=== PATIENT | male | born 1970 | race Two or more races ===

== ENCOUNTER 2021-08-24 21:04 | Inpatient (IN) | payer BC ==
[~2021-08-24] VITALS: Ht 177.8 cm; Wt 95.5 kg
[2021-08-24] MEDS ORDERED: PANTOPRAZOLE 40 MG/10 ML VIAL INJ IV ONE (21:15)
[2021-08-24 22:04] LABS: Basophils # (auto) 0 10 ^3/uL (0-0.2); Basophils % (auto) 0.1 % (0.0-2.0); Eosinophils # (auto) 0 10 ^3/uL (0-0.8); Eosinophils % (auto) 0.1 % (0.0-7.0); Lymphocytes # (auto) 1.2 10 ^3/uL (0.4-5.4); Monocytes # (auto) 0.3 10 ^3/uL (0-1.3); Neutrophils # (auto) 10.9 10 ^3/uL (1.6-8.6)
[2021-08-24 22:06] LABS: Hematocrit 20.6 % (41.0-53.0); Hemoglobin 7.1 g/dL (13.5-17.5); Lymphocytes % (auto) 9.6 % (10.0-50.0); Mean Corpuscular Hemoglobin 31.1 pg (28.0-32.0); Mean Corpuscular Hgb Conc. 34.5 g/dL (32.0-36.0); Mean Corpuscular Volume 90.2 fL (80.0-100.0); Monocytes % (auto) 2.4 % (0.0-12.0); Neutrophils % (auto) 87.8 % (37.0-80.0); Red Blood Cells 2.29 10^6/uL (4.5-5.90); Red Cell Distribution Width 12.4 % (11.8-14.3); White Blood Cell 12.4 10^3/uL (4.4-10.8)
[2021-08-24 22:22] LABS: Albumin 1.9 g/dL (3.4-5.0); BUN/Creatinine Ratio 47.6; Potassium 4.3 mmol/L (3.5-5.1)
[2021-08-24 22:27] LABS: Bilirubin, Total 0.2 mg/dL (0.2-1.0); Total Protein 4.3 g/dL (6.4-8.2)
[2021-08-24] MEDS ORDERED: ONDANSETRON HCL 4 MG/2 ML VIAL IV ONE (22:45)
[2021-08-24] MEDS ORDERED: LORazepam 2MG/ML-1ML VIAL IV ONE (23:30)
[2021-08-25] VITALS (12 sets, daily range): BP systolic 96–145; BP diastolic 49–105
[2021-08-25 00:10] LABS: Urine Bacteria NONE SEEN /hpf (None Seen); Urine Blood Negative /uL (Negative); Urine Specific Gravity 1.019 (1.001-1.035); Urine WBC 1 /hpf (0 - 3)
[2021-08-25] MEDS ORDERED: ACETAMINOPHEN 325 MG TAB PO ONE ×2 (00:30→01:15)
[2021-08-25] MEDS ORDERED: SODIUM CHLORIDE 0.9% 500 ML IV ONE ×2 (01:15)
[2021-08-25] MEDS ORDERED: methylPREDNISolone SOD SUCC 125 MG/2 ML VL IV ONE (04:45)
[2021-08-25] MEDS ORDERED: diphenhdrAMINE HCL 50 MG/1 ML VL IV ONE (04:45)
[2021-08-25] MEDS ORDERED: MORPHINE SULFATE INJECTION 2 MG/ML SYRG IV PRN (05:15)
[2021-08-25] MEDS ORDERED: ONDANSETRON HCL 4 MG/2 ML VIAL IV PRN (05:15)
[2021-08-25] MEDS ORDERED: NITROGLYCERIN 0.4 MG SL TAB SL PRN (05:15)
[2021-08-25] MEDS ORDERED: LORazepam 2MG/ML-1ML VIAL IV ONE (05:30)
[2021-08-25] MEDS: SODIUM CHLORIDE 0.9% 1,000 ML IV SCH ×2 (06:00→18:07)
[2021-08-25] MEDS: PANTOPRAZOLE 40mg/50ML NS AE 50 ML IV SCH ×3 (10:00→15:09)
[2021-08-25 11:53] LABS: Hemoglobin 8.8 g/dL (13.5-17.5)
[2021-08-25 12:11] LABS: INR 1.05 (0.9-1.15); Partial Thromboplastin Time 25.9 sec (23.6-33.0)
[2021-08-25] MEDS ORDERED: FAMOTIDINE (10MG/ML) 2ML VL IV ONE (14:18)
[2021-08-25] MEDS ORDERED: ONDANSETRON HCL 4 MG/2 ML VIAL ONE (14:20)
[2021-08-25] MEDS ORDERED: LIDOCAINE 2% (LOCAL ANESTH.) PF 5ml SDV ONE (14:20)
[2021-08-25] MEDS ORDERED: PROPOFOL 10 MG/ML 20 ML IV ONE (14:20)
[2021-08-25] MEDS ORDERED: GLYCOPYRROLATE 0.2 MG/ML 1ML VIAL ONE (14:20)
[2021-08-25] MEDS ORDERED: MIDAZOLAM HCL 2MG/2ML 2ml VIAL (1mg/ml) ONE (14:20)
[2021-08-25] MEDS: SUCRALFATE 1 GM/10 ML ORAL SUSP GT SCH (18:07)
[2021-08-25] MEDS ORDERED: diphenhdrAMINE HCL 12.5 MG/5 ML UD PO ONE (21:00)
[2021-08-25] MEDS: PANTOPRAZOLE 40 MG/10 ML VIAL INJ IV SCH (21:38)
[2021-08-25 22:51] LABS: Amphetamine Screen, Urine NEGATIVE (NEGATIVE); Barbiturate Scree,Urine NEGATIVE (NEGATIVE); Benzodiazephine Screen, Urine POSITIVE (NEGATIVE); Cannabinoid Screen, Urine NEGATIVE (NEGATIVE); Cocaine Screen, Urine NEGATIVE (NEGATIVE); Opiate Scree,Urine NEGATIVE (NEGATIVE)
[2021-08-25 22:59] LABS: Phencyclidine Screen, Urine NEGATIVE (NEGATIVE)
[2021-08-26 05:00] VITALS: BP 93/50
[2021-08-26] MEDS: SUCRALFATE 1 GM/10 ML ORAL SUSP GT SCH ×2 (06:33→17:55)
[2021-08-26 06:47] LABS: Basophils # (auto) 0 10 ^3/uL (0-0.2); Basophils % (auto) 0.2 % (0.0-2.0); Eosinophils # (auto) 0 10 ^3/uL (0-0.8); Hematocrit 20.8 % (41.0-53.0); Nucleated Red Blood Cells % 0.1 %
[2021-08-26 06:49] LABS: Eosinophils % (auto) 0.1 % (0.0-7.0); Hemoglobin 7.2 g/dL (13.5-17.5); Lymphocytes # (auto) 2.4 10 ^3/uL (0.4-5.4); Lymphocytes % (auto) 16.8 % (10.0-50.0); Mean Corpuscular Hemoglobin 31.1 pg (28.0-32.0); Mean Corpuscular Hgb Conc. 34.5 g/dL (32.0-36.0); Mean Corpuscular Volume 90.1 fL (80.0-100.0); Monocytes # (auto) 0.8 10 ^3/uL (0-1.3); Monocytes % (auto) 5.9 % (0.0-12.0); Neutrophils # (auto) 10.9 10 ^3/uL (1.6-8.6); White Blood Cell 14.2 10^3/uL (4.4-10.8)
[2021-08-26 06:58] LABS: Magnesium 2.2 mg/dL (1.6-2.6); Potassium 4.4 mmol/L (3.5-5.1)
[2021-08-26 07:06] LABS: Albumin 2.1 g/dL (3.4-5.0); BUN/Creatinine Ratio 28.9; Bilirubin, Total 0.4 mg/dL (0.2-1.0); Calcium 7.9 mg/dL (8.5-10.1); Total Protein 4.6 g/dL (6.4-8.2)
[2021-08-26] MEDS: SODIUM CHLORIDE 0.9% 1,000 ML IV SCH ×2 (07:55→20:05)
[2021-08-26 08:31] VITALS: BP 92/49
[2021-08-26] MEDS: PANTOPRAZOLE 40 MG/10 ML VIAL INJ IV SCH (11:08)
[2021-08-26 13:10] VITALS: BP 107/46
[2021-08-26] MEDS: guaiFENesin-DM 100/10mg/5ml SYR PO PRN (15:04)
[2021-08-26 17:28] VITALS: BP 100/61
[2021-08-26 20:02] VITALS: BP 118/63
[2021-08-26] MEDS ORDERED: SODIUM CHLORIDE 0.9% 1,000 ML IV SCH (21:00)
[2021-08-26] MEDS: ACETAMINOPHEN 325 MG TAB PO PRN (21:22)
[2021-08-26] MEDS: PANTOPRAZOLE 80 MG in SODIUM CHL 0.9% 80 ML IV SCH (21:23)
[2021-08-26 22:00] VITALS: BP 126/54
[2021-08-26] MEDS ORDERED: PANTOPRAZOLE 40 MG/10 ML VIAL INJ IV SCH (22:00)
[2021-08-27] MEDS: ACETAMINOPHEN 325 MG TAB PO PRN ×2 (04:48→10:40)
[2021-08-27 05:00] VITALS: BP 105/58
[2021-08-27 06:05] LABS: Hematocrit 22.4 % (41.0-53.0); Hemoglobin 7.3 g/dL (13.5-17.5); Mean Corpuscular Hemoglobin 30.2 pg (28.0-32.0); Mean Corpuscular Hgb Conc. 32.7 g/dL (32.0-36.0); Mean Corpuscular Volume 92.3 fL (80.0-100.0); Red Blood Cells 2.43 10^6/uL (4.5-5.90)
[2021-08-27 06:09] LABS: Basophils % (manual) 0 (0.0-2.0); Blast Cells 0; Promyelocytes % 0; Reactive Lymphocytes 0
[2021-08-27] MEDS: SUCRALFATE 1 GM/10 ML ORAL SUSP GT SCH (06:29)
[2021-08-27] MEDS: guaiFENesin-DM 100/10mg/5ml SYR PO PRN (06:30)
[2021-08-27 07:04] LABS: Band Neutrophils % (manual) 6; Eosinophils % (manual) 1 (0-7); Metamyelocytes % 1; Myelocytes % 5
[2021-08-27 07:05] LABS: Lymphocytes % (manual) 25 (10.0-50.0); Monocytes % (manual) 6 (0-12)
[2021-08-27 08:20] VITALS: BP 93/48
[2021-08-27] MEDS: PANTOPRAZOLE 80 MG in SODIUM CHL 0.9% 80 ML IV SCH (09:45)
[2021-08-27] MEDS ORDERED: SUCR1TAB22 PO (11:25)
[2021-08-27] MEDS ORDERED: PANT40TA2 PO (11:25)
[2021-08-27] MEDS ORDERED: LEVO500T31 PO (11:25)
[2021-08-27] MEDS ORDERED: FER325T PO (11:29)
[2021-08-27 12:05] VITALS: BP 98/67
== END 2021-08-27 12:30 | disposition home or self-care (01) | DRG 377 ==
LOC: EDBD 21:04 → ER 21:10 → TELE 08-25 05:04 → TELE-CENTR 08-25 06:42
PROVIDERS: ADMIT Nurse Practitioner; ATTEND Internal Medicine
PROC: 0DB68ZX Excision of Stomach, Via Natural or Artificial Opening Endoscopic, Diagnostic (ICD-10-PCS; 2021-08-25)
PROC: 30233N1 Transfusion of Nonautologous Red Blood Cells into Peripheral Vein, Percutaneous Approach (ICD-10-PCS; 2021-08-25)
PROC: 0DB98ZX Excision of Duodenum, Via Natural or Artificial Opening Endoscopic, Diagnostic (ICD-10-PCS; principal; 2021-08-25 14:23)
DX: K29.71 Gastritis, unspecified, with bleeding (principal); E43 Unspecified severe protein-calorie malnutrition; R65.10 Systemic inflammatory response syndrome (SIRS) of non-infectious origin without acute organ dysfunction; K25.4 Chronic or unspecified gastric ulcer with hemorrhage; I95.9 Hypotension, unspecified; J20.9 Acute bronchitis, unspecified; K22.2 Esophageal obstruction; K44.9 Diaphragmatic hernia without obstruction or gangrene; R07.89 Other chest pain; R00.0 Tachycardia, unspecified; Z20.822 Contact with and (suspected) exposure to COVID-19; R55 Syncope and collapse; D50.0 Iron deficiency anemia secondary to blood loss (chronic); Z80.9 Family history of malignant neoplasm, unspecified; Z82.49 Family history of ischemic heart disease and other diseases of the circulatory system; Z83.3 Family history of diabetes mellitus; Z68.26 Body mass index [BMI] 26.0-26.9, adult
CPT/HCPCS: 36415; 71045; 71046; 74176; 80053; 80061; 80307; 81001; 82270; 82306; 82962; 83036; 83735; 84443; 84484; 85007; 85014; 85018; 85025; 85027; 85610; 85730; 86850; 86900; 86901; 86920; 87426; 93005; 96361; 96374; 96375; 99291; C9113; G0378; J2001; J2250; J2405; J2704; J3490

== ENCOUNTER → 2021-09-06 | Outpatient (CLI) | payer BC ==
[~2021-09-06] MED LIST: FER325T PO; LEVO500T31 PO; PANT40TA2 PO; SUCR1TAB22 PO
[2021-09-06 10:53] LABS: Basophils # (auto) 0.1 10 ^3/uL (0-0.2); Basophils % (auto) 0.7 % (0.0-2.0); Eosinophils # (auto) 0.1 10 ^3/uL (0-0.8); Eosinophils % (auto) 1.7 % (0.0-7.0); Hematocrit 30.8 % (41.0-53.0); Hemoglobin 10.6 g/dL (13.5-17.5); Lymphocytes # (auto) 1.8 10 ^3/uL (0.4-5.4); Lymphocytes % (auto) 20.4 % (10.0-50.0); Mean Corpuscular Hemoglobin 33.2 pg (28.0-32.0); Mean Corpuscular Hgb Conc. 34.6 g/dL (32.0-36.0); Monocytes # (auto) 0.6 10 ^3/uL (0-1.3); Monocytes % (auto) 6.3 % (0.0-12.0); Neutrophils # (auto) 6.4 10 ^3/uL (1.6-8.6); Neutrophils % (auto) 70.9 % (37.0-80.0); Nucleated Red Blood Cells % 0.1 %; Red Cell Distribution Width 16.4 % (11.8-14.3)
== END | disposition home or self-care (01) ==
LOC: LAB 10:38
PROVIDERS: ATTEND Family Medicine
DX: D64.9 Anemia, unspecified (principal)
CPT/HCPCS: 36415; 85025

== ENCOUNTER 2021-11-18 09:00 | Outpatient (CLI) | payer BC ==
[2021-11-18 09:24] LABS: Urine WBC None Seen /hpf (0 - 3)
[2021-11-18 09:46] LABS: Basophils # (auto) 0.1 10 ^3/uL (0-0.2); Eosinophils # (auto) 0.2 10 ^3/uL (0-0.8); Eosinophils % (auto) 3.2 % (0.0-7.0); Hematocrit 44.1 % (41.0-53.0); Mean Corpuscular Hemoglobin 29.4 pg (28.0-32.0); Mean Corpuscular Volume 86.5 fL (80.0-100.0); Monocytes # (auto) 0.5 10 ^3/uL (0-1.3); Monocytes % (auto) 8.8 % (0.0-12.0); Neutrophils # (auto) 3.4 10 ^3/uL (1.6-8.6); Nucleated Red Blood Cells % 0.1 %; Red Cell Distribution Width 13.3 % (11.8-14.3); White Blood Cell 6.1 10^3/uL (4.4-10.8)
[2021-11-18 09:55] LABS: Urine Bacteria NONE SEEN /hpf (None Seen); Urine Blood Negative /uL (Negative); Urine Specific Gravity 1.005 (1.001-1.035)
[2021-11-18 10:41] LABS: Chloride 107 mmol/L (98-107); Sodium 135 mmol/L (136-145)
[2021-11-18 11:00] LABS: Alkaline Phosphatase 93 U/L (45-117)
[2021-11-18 13:37] LABS: Anion Gap 7 (5-15); Blood Urea Nitrogen 20 mg/dL (7-18); Carbon Dioxide 21 mmol/L (21-32); Glucose 100 mg/dL (74-106)
[2021-11-18 13:38] LABS: Alanine Aminotransferase 39 U/L (16-61); Albumin 3.5 g/dL (3.4-5.0); Aspartate Aminotransferase 22 U/L (15-37); BUN/Creatinine Ratio 20.2; Bilirubin, Total 0.4 mg/dL (0.2-1.0); Calcium 8.8 mg/dL (8.5-10.1); GFR African American 102 mL/min; GFR Non-African American 85 mL/min; Total Protein 7.3 g/dL (6.4-8.2)
== END 2021-11-18 09:15 | disposition home or self-care (01) ==
LOC: LAB 09:00 → EDSTATUS 11-19 13:30
PROVIDERS: ATTEND Internal Medicine Gastroenterology
DX: D50.0 Iron deficiency anemia secondary to blood loss (chronic) (principal)
CPT/HCPCS: 36415; 80053; 81001; 85025